=== PATIENT | female | born 1975 | race Two or more races ===

== ENCOUNTER 2024-05-22 17:45 | Emergency (ER) | payer OTHER ==
[~2024-05-22] VITALS: Ht 157.5 cm; Wt 72.6 kg
[2024-05-22] MEDS ORDERED: BUPROPION XL450 MG PO (18:44)
[2024-05-22] MEDS ORDERED: DIPHENHYDRAMI12.5 MG PO (18:44)
[2024-05-22] MEDS ORDERED: AMRIX15 MG PO (18:44)
[2024-05-22] MEDS ORDERED: DRIZALMA SPRINK20 MG PO (18:45)
[2024-05-22] MEDS ORDERED: [UNRECOGNIZED DRUG - OTHER] (18:45)
[2024-05-22] MEDS ORDERED: 0.9 % SODIUM CHLORIDE 1,000 ML IV STA (19:02)
[2024-05-22] MEDS ORDERED: ONDANSETRON HCL 2 MG/ML VIAL IV STA (19:03)
[2024-05-22] MEDS ORDERED: MAG HYDROX/ALUMINUM HYD/SIMETH 30 ML BLIST.PACK PO STA (19:04)
[2024-05-22] MEDS ORDERED: FAMOTIDINE/PF 20 MG/2 ML VIAL IV PUSH STA (19:04)
[2024-05-22 19:24] LABS: URINE APPEARANCE Clear; URINE BILIRRUBIN Negative (NEGATIVE); URINE BLOOD Negative; URINE COLOR Yellow; URINE GLUCOSE Negative (NEGATIVE); URINE LEUKOCYTE Negative; URINE NITRATE Negative; URINE PROTEIN Negative (NEGATIVE); URINE UROBILINOGEN 0.2 E.U./dl
[2024-05-22 19:27] LABS: HEMATOCRIT 35.7 % (36.0-45.00); MEAN CELL VOLUME 93.4 fL (80.00-100.00); MEAN CORPUSCULAR HEMOGLOBIN 31.4 pg (27.00-32.0); MEAN CORPUSCULAR HGB CONC 33.6 g/dl (32.0-36.0); PLATELET COUNT 336 K/uL (150-450); RED BLOOD COUNT 3.82 M/uL (4.00-6.00); RED CELL DISTRIBUTION WIDTH 15.4 % (11.5-14.5); URINE BACTERIA 6.2 uL (0.0-1933); URINE EPITHELIAL CELLS 1.5 uL (0.0-38.8); URINE RBC 8.3 uL (0.0-20.8)
[2024-05-22 19:28] LABS: URINE WBC 0.6 uL (0.0-23.2)
[2024-05-22] MEDS ORDERED: ONDANSETRON HCL 2 MG/ML VIAL ONE (19:30)
[2024-05-22] MEDS ORDERED: FAMOTIDINE/PF 20 MG/2 ML VIAL ONE (19:31)
[2024-05-22] MEDS ORDERED: MAG HYDROX/ALUMINUM HYD/SIMETH 30 ML BLIST.PACK PO ONE (19:31)
[2024-05-22 19:39] LABS: CALCIUM 9.6 mg/dL (8.5-10.1); CREATININE SERUM 0.98 mg/dL (0.55-1.02); GFR 60.32; POTASSIUM 3.98 mEq/L (3.5-5.1)
[2024-05-22] MEDS ORDERED: OMEPRAZOLE MAGN20 MG PO (20:11)
[2024-05-22] MEDS ORDERED: KETOROLAC TROMETHAMINE 15 MG VIAL IV STA (20:11)
[2024-05-22] MEDS ORDERED: ZITHROMAX500 MG PO (20:11)
[2024-05-22] MEDS ORDERED: MAALOX MAXIMUM355 ML PO (20:11)
[2024-05-22] MEDS ORDERED: PEPCID AC20 MG PO (20:11)
[2024-05-22] MEDS ORDERED: KETOROLAC TROMETHAMINE 30 MG VIAL ONE (20:28)
== END 2024-05-22 21:36 | disposition home or self-care (01) ==
LOC: ER 17:46
PROVIDERS: Emergency Medicine
DX: R53.81 Other malaise (principal); K29.60 Other gastritis without bleeding; I10 Essential (primary) hypertension

== ENCOUNTER 2024-06-10 13:41 | Emergency (ER) | payer OTHER ==
[~2024-06-10] VITALS: Ht 157.5 cm; Wt 73.5 kg
[~2024-06-10 13:41] MED LIST: AMRIX15 MG PO; BUPROPION XL450 MG PO; DIPHENHYDRAMI12.5 MG PO; DRIZALMA SPRINK20 MG PO; MAALOX MAXIMUM355 ML PO; OMEPRAZOLE MAGN20 MG PO; PEPCID AC20 MG PO; ZITHROMAX500 MG PO; [UNRECOGNIZED DRUG - OTHER]
== END 2024-06-10 15:00 | disposition home or self-care (01) ==
LOC: ER 13:41
DX: S05.12XA Contusion of eyeball and orbital tissues, left eye, initial encounter (principal); W22.03XA Walked into furniture, initial encounter; Y93.89 Activity, other specified; Y92.89 Other specified places as the place of occurrence of the external cause